=== PATIENT | male | born 1995 ===

== ENCOUNTER 2016-05-19 23:46 | Emergency (ER) | payer SELFPAY ==
[2016-05-20 00:03] VITALS: O2SAT 99
--- NOTE | 2016-05-20 01:10 | C.PDOC ---
History Of Present Illness 20 year old patient presents to the ED complaining of lower back pain for the past 2 weeks. The pain is worse after weight training. The pain is also radiating down the left lower for the past 3 days. Patient denies taking any medications, numbness, weakness, or urinary symptoms or bowel/ bladder incontinence. Patient reports the pain subsided while in the ED. Time Seen by Provider: 05/20/16 00:43 Chief Complaint (Nursing): Back Pain History Per: Patient History/Exam Limitations: no limitations Onset/Duration Of Symptoms: Worse Since (3 days), Other (2 weeks) Current Symptoms Are (Timing): Still Present Quality Of Discomfort: "Pain" Severity: Mild Pain Scale Rating Of: 3 Associated Symptoms: None Recent travel outside of the [place]: No Past Medical History Reviewed: Historical Data, Nursing Documentation, Vital Signs Vital Signs: Last Vital Signs Temp 97.7 F 05/20/16 01:18 Pulse 91 H 05/20/16 01:18 Resp 16 05/20/16 01:18 BP 106/61 05/20/16 01:18 Pulse Ox 99 05/20/16 05:06 Family History: States: Unknown Family Hx - Social History Hx Alcohol Use: No Hx Substance Use: No Review Of Systems Except As Marked, All Systems Reviewed And Found Negative. Genitourinary: Negative for: Dysuria, Frequency, Incontinence Musculoskeletal: Positive for: Back Pain (lower), Leg Pain (left) Neurological: Negative for: Weakness, Numbness Physical Exam - Physical Exam Appears: Non-toxic, No Acute Distress Skin: Warm, Dry Neck: Normal ROM, Supple Chest: Symmetrical Back: Normal Inspection, No CVA Tenderness, No Vertebral Tenderness, No Decreased ROM, No Paraspinal Tenderness Extremity: Normal ROM, No Pedal Edema, No Calf Tenderness, Capillary Refill (<2 seconds), No Deformity, Other (left leg: (+)<2 seconds capillary refill (-) deformity (-)swelling (+)good pulse (-)tenderness) Neurological/Psych: Oriented x3, Normal Speech, Normal Cognition Gait: Steady ED Course And Treatment O2 Sat by Pulse Oximetry: 99 (RA) Pulse Ox Interpretation: Normal Progress Note: Patient refused pain medications. Patient is resting comfortably , no fever, no bony tenderness, no numbness, no weakness, or abdominal pain. Patient is ambulatory in the emergency department with no signs of discomfort. Patient was advised to follow up with their physician in 1-2 days. Return if symptoms worsen. Disposition Counseled Patient/Family Regarding: Diagnosis, Need For Followup, Rx Given - Disposition Referrals: [facility] at [facility] [Outside] Disposition: HOME/ ROUTINE Disposition Time: 01:08 Condition: STABLE Additional Instructions: Take meds as directed Follow up in clinic Return to ER if worse Prescriptions: Cyclobenzaprine [Cyclobenzaprine HCl] 10 mg PO HS #10 tab Ibuprofen [Motrin] 600 mg PO Q6H #30 tab Instructions: Acute Low Back Pain (ED) Forms: Work Excuse - Clinical Impression Clinical Impression: Low back pain - PA / REAL ESTATE CLOSING COORDINATOR / Resident Statement MD/DO has reviewed & agrees with the documentation as recorded. - Scribe Statement The provider has reviewed the documentation as recorded by the Scribe Mary Gibson All medical record entries made by the Scribe were at my direction and personally dictated by me. I have reviewed the chart and agree that the record accurately reflects my personal performance of the history, physical exam, medical decision making, and the department course for this patient. I have also personally directed, reviewed, and agree with the discharge instructions and disposition.
[2016-05-20 01:19] VITALS: BP 106/61; PULSE 91; RESP 16; TEMP 97.7
== END 2016-05-20 01:20 | disposition home or self-care (01) ==
LOC: C.ER 23:46
DX: M54.5 Low back pain (principal)

== ENCOUNTER 2016-06-13 08:28 | Emergency (ER) | payer SELFPAY ==
[2016-06-13 08:31] VITALS: BP 132/78; PULSE 79; RESP 18; TEMP 98.1; O2SAT 97
[2016-06-13] MEDS ORDERED: Ciprofloxacin 0.3% OPTH SOLN OU STA (09:12)
--- NOTE | 2016-06-13 09:20 | C.PDOC ---
History Of Present Illness 20-year-old male, presents to the emergency department with complaints of 3 day duration of erythema o B/L eyes with purulent discharge, burning and puritis. Patient denies sick contacts Time Seen by Provider: 06/13/16 09:07 Chief Complaint (Nursing): Eye Problem History Per: Patient History/Exam Limitations: no limitations Past Medical History Reviewed: Historical Data, Nursing Documentation, Vital Signs Vital Signs: Last Vital Signs Temp 98.1 F 06/13/16 08:30 Pulse 79 06/13/16 08:30 Resp 18 06/13/16 08:30 BP 132/78 06/13/16 08:30 Pulse Ox 97 06/13/16 11:13 Family History: States: Unknown Family Hx - Social History Hx Alcohol Use: No Hx Substance Use: No Review Of Systems Except As Marked, All Systems Reviewed And Found Negative. Constitutional: Negative for: Fever, Chills Eyes: Positive for: Eyelid Inflammation, Redness. Negative for: Vision Change Respiratory: Negative for: Shortness of Breath Gastrointestinal: Negative for: Vomiting Skin: Negative for: Rash Neurological: Negative for: Weakness, Numbness, Headache, Dizziness Physical Exam - Physical Exam Appears: Non-toxic, No Acute Distress Skin: Warm, Dry, No Rash Head: Atraumatic, Normacephalic Eye(s): bilateral: PERRL, EOMI, Other (conjunctival erythema w/ yellow discharge ) Nose: Normal Oral Mucosa: Moist Lips: Normal Appearing Neck: Normal ROM Respiratory: No Accessory Muscle Use Extremity: Normal ROM ED Course And Treatment O2 Sat by Pulse Oximetry: 97 Disposition - Disposition Referrals: [facility] at [facility] [Outside] [facility] [Outside] Disposition: HOME/ ROUTINE Disposition Time: 09:13 Condition: STABLE Additional Instructions: Follow up with your PMD within 1-2 days. Return to ED if feel worse. Use Cipro eye drops as instructed:1 drop in both eyes every 2 h while awake for 2 days, followed by 1 drop every 4 h while awake for 5 more days. Prescriptions: Ciprofloxacin 0.3% [Ciloxan 0.3% Ophth SOLN] 1 drop OU Q2 #1 bottle Instructions: Conjunctivitis (ED) - Clinical Impression Clinical Impression: Conjunctivitis - Scribe Statement The provider has reviewed the documentation as recorded by the Angie Taveras All medical record entries made by the Scribe were at my direction and personally dictated by me. I have reviewed the chart and agree that the record accurately reflects my personal performance of the history, physical exam, medical decision making, and the department course for this patient. I have also personally directed, reviewed, and agree with the discharge instructions and disposition.
== END 2016-06-13 09:50 | disposition home or self-care (01) ==
LOC: C.ER 08:28
DX: H10.9 Unspecified conjunctivitis (principal)

== ENCOUNTER 2016-06-16 08:21 | Emergency (ER) | payer OTHER ==
[2016-06-16 08:25] VITALS: BP 138/76; PULSE 79; RESP 16; TEMP 98.6; O2SAT 99
[2016-06-16] MEDS ORDERED: Tobramycin/Dexamethasone (Tobradex) Opth Sol (2.5 ml) OU STA (08:41)
--- NOTE | 2016-06-16 08:44 | C.PDOC ---
History Of Present Illness 20 y/o male presents to the ED for evaluation of bilateral eye redness, irritation, and itching which began several days ago. Patient states he was seen in ED on 06/13 and given prescription for Ciprofloxacin eye drops. Patient has not had any improvement in his symptoms. He states he had clear discharge from his eyes when he woke up this morning. Patient denies fever/ chills, cough, runny nose, sore throat, eye trauma/injury, or sick contacts. Time Seen by Provider: 06/16/16 08:30 Chief Complaint (Nursing): Eye Problem History Per: Patient History/Exam Limitations: no limitations Onset/Duration Of Symptoms: Days Current Symptoms Are (Timing): Still Present Injury To Eye?: No Severity: Mild Quality: "Pain" Associated Symptoms: Discharge From Eye (clear ), Other (redness, irritation, itching ) Additional History Per: Patient Past Medical History Reviewed: Historical Data, Nursing Documentation, Vital Signs Vital Signs: Last Vital Signs Temp 98.6 F 06/16/16 08:25 Pulse 79 06/16/16 08:25 Resp 16 06/16/16 08:25 BP 138/76 06/16/16 08:25 Pulse Ox 99 06/16/16 11:29 - Medical History PMH: No Chronic Diseases Surgical History: No Surg Hx Family History: States: No Known Family Hx - Social History Hx Alcohol Use: No Hx Substance Use: No Review Of Systems Except As Marked, All Systems Reviewed And Found Negative. Constitutional: Negative for: Fever, Chills Eyes: Positive for: Redness, Other (+irritaion, itching and clear discharge bilaterally ) ENT: Negative for: Ear Pain Cardiovascular: Negative for: Chest Pain Respiratory: Negative for: Cough, Shortness of Breath Gastrointestinal: Negative for: Nausea, Vomiting, Abdominal Pain, Diarrhea Skin: Negative for: Rash Physical Exam - Physical Exam Appears: Well, Non-toxic, No Acute Distress Skin: Normal Color, Warm, Dry, No Rash Head: Normacephalic, No Swelling (periorbital ) Eye(s): bilateral: PERRL, EOMI, Other (scleral injection B/L without discharge, no eyelid swelling) Oral Mucosa: Moist Neck: Supple Cardiovascular: Rhythm Regular Respiratory: Normal Breath Sounds, No Rales, No Rhonchi, No Wheezing Extremity: Normal ROM Neurological/Psych: Oriented x3 Gait: Steady ED Course And Treatment O2 Sat by Pulse Oximetry: 99 (on RA) Pulse Ox Interpretation: Normal Progress Note: Patient given Tobradex eye drops, first dose in ED. He was instructed to follow up with ophthamology in 1-2 days, and understands he should return to ED if symptoms worsen. Disposition Counseled Patient/Family Regarding: Diagnosis, Need For Followup, Rx Given - Disposition Referrals: Fabian Park MD [Staff Provider] - [facility] [Outside] [facility] [Outside] Disposition: HOME/ ROUTINE Disposition Time: 08:50 Condition: STABLE Additional Instructions: FOLLOW UP WITH EYE DOCTOR IN 1-2 DAYS USE MEDICATION DIRECTED RETURN TO ER IF SYMPTOMS WORSEN Prescriptions: Dexamethasone/Tobramycin [Tobradex Opht Susp] 1 drop OU Q6 #1 bottle Instructions: Iritis (ED) Print Language: ITALIAN - POA Present On Arrival: None - Clinical Impression Clinical Impression: Iritis - Scribe Statement The provider has reviewed the documentation as recorded by the Scribe (Rosalba Gibson) Provider Attestation: All medical record entries made by the Scribe were at my direction and personally dictated by me. I have reviewed the chart and agree that the record accurately reflects my personal performance of the history, physical exam, medical decision making, and the department course for this patient. I have also personally directed, reviewed, and agree with the discharge instructions and disposition.
== END 2016-06-16 09:03 | disposition home or self-care (01) ==
LOC: C.ER 08:21
DX: H20.9 Unspecified iridocyclitis (principal)

== ENCOUNTER 2017-06-22 20:11 | Emergency (ER) | payer SELFPAY ==
[2017-06-22 20:46] VITALS: BP 122/67; PULSE 61; RESP 20; TEMP 98.1; O2SAT 99
--- NOTE | 2017-06-22 23:11 | C.PDOC ---
History Of Present Illness 21-year-old male, presents to the emergency department with complaints of bilateral itching and watery eyes x3 days. Patient denies any fever, chills, cough, sore throat, ear pain or any other associated symptoms. No other complaints at this time. Time Seen by Provider: 06/22/17 22:36 Chief Complaint (Nursing): Eye Problem History Per: Patient History/Exam Limitations: no limitations Past Medical History Reviewed: Historical Data, Nursing Documentation, Vital Signs Vital Signs: Last Vital Signs Temp 98.1 F 06/22/17 20:42 Pulse 61 06/22/17 20:42 Resp 20 06/22/17 20:42 BP 122/67 06/22/17 20:42 Pulse Ox 99 06/23/17 20:03 Family History: States: No Known Family Hx - Social History Hx Alcohol Use: No Hx Substance Use: No Review Of Systems Constitutional: Negative for: Fever Eyes: Positive for: Redness (itching and watery) ENT: Negative for: Throat Pain Respiratory: Negative for: Cough Physical Exam - Physical Exam Appears: Non-toxic, No Acute Distress Skin: Normal Color, Warm, Dry, No Rash Head: Normacephalic Eye(s): bilateral: PERRL, EOMI, Other (Bilateral injection, clear discharge, no tearing) Nose: Normal Oral Mucosa: Moist Lips: Normal Appearing Neck: Normal ROM, Supple Extremity: Normal ROM, No Deformity, No Swelling Neurological/Psych: Oriented x3, Normal Speech ED Course And Treatment O2 Sat by Pulse Oximetry: 99 (RA) Pulse Ox Interpretation: Normal Disposition Counseled Patient/Family Regarding: Diagnosis, Need For Followup, Rx Given - Disposition Referrals: Fabian Park MD [Staff Provider] - Disposition: HOME/ ROUTINE Disposition Time: 23:10 Condition: STABLE Additional Instructions: Take meds as directed Cold compress to eyes Return to ER if worse Prescriptions: Cetirizine HCl [Zyrtec] 10 mg PO DAILY #20 capsule Dexamethasone/Tobramycin [Tobradex 0.1%-0.3% 2.5 Ml] 1 drop OU Q6 #1 bottle Instructions: Conjunctivitis (Noninfectious Pinkeye) (DC) Forms: [employer] (T[place]ight) - Clinical Impression Clinical Impression: Allergic conjunctivitis - Scribe Statement The provider has reviewed the documentation as recorded by the Scribe (Delfino Kumar) All medical record entries made by the Scribe were at my direction and personally dictated by me. I have reviewed the chart and agree that the record accurately reflects my personal performance of the history, physical exam, medical decision making, and the department course for this patient. I have also personally directed, reviewed, and agree with the discharge instructions and disposition.
== END 2017-06-22 23:18 | disposition home or self-care (01) ==
LOC: C.ER 20:11
DX: H10.13 Acute atopic conjunctivitis, bilateral (principal)

== ENCOUNTER 2017-06-25 12:55 | Emergency (ER) | payer OTHER ==
[2017-06-25 13:07] VITALS: RESP 18; TEMP 98.2; O2SAT 99
--- NOTE | 2017-06-25 14:36 | RAD ---
PROCEDURE: Left Foot Radiographs. HISTORY: hit 4th and 5th digits yesterday COMPARISON: None. FINDINGS: BONES: No acute fracture. JOINTS: Unremarkable. SOFT TISSUES: Normal. OTHER FINDINGS: None. IMPRESSION: No demonstrated fracture or dislocation.
[2017-06-25 14:37] VITALS: BP 107/73; PULSE 74
--- NOTE | 2017-06-25 14:41 | C.PDOC ---
History Of Present Illness 21 y/o male presents to the ED for evaluation of left 4th and 5th toe injuries. Patient states he accidentally hit the left foot against a wall yesterday. Today he noticed bruising and pain to toes. No changes in sensation. Patient is still able to move all toes, with pain. Time Seen by Provider: 06/25/17 13:22 Chief Complaint (Nursing): Lower Extremity Problem/Injury History Per: Patient History/Exam Limitations: no limitations Onset/Duration Of Symptoms: Days Current Symptoms Are (Timing): Still Present Past Medical History Reviewed: Historical Data, Nursing Documentation, Vital Signs Vital Signs: Last Vital Signs Temp 98.2 F 06/25/17 14:36 Pulse 74 06/25/17 14:36 Resp 18 06/25/17 14:36 BP 107/73 06/25/17 14:36 Pulse Ox 99 06/25/17 14:42 Surgical History: No Surg Hx Family History: States: Unknown Family Hx - Social History Hx Alcohol Use: No Hx Substance Use: No - Immunization History Hx Tetanus Toxoid Vaccination: No Hx Influenza Vaccination: No Hx Pneumococcal Vaccination: No Review Of Systems Except As Marked, All Systems Reviewed And Found Negative. Musculoskeletal: Positive for: Other (left 4th and 5th toe pain) Neurological: Negative for: Weakness, Numbness Physical Exam - Physical Exam Appears: Non-toxic, No Acute Distress Skin: Warm, Dry Head: Atraumatic, Normacephalic Eye(s): bilateral: Normal Inspection Chest: Symmetrical Respiratory: No Accessory Muscle Use Extremity: Tenderness (to left 4th and 5th toes), Capillary Refill (< 2 sec), No Deformity, Swelling (to left 4th and 5th toes with ecchymosis) Pulses: Left Dorsalis Pedis: Normal, Right Dorsalis Pedis: Normal Neurological/Psych: Oriented x3, Normal Motor, Normal Sensation ED Course And Treatment O2 Sat by Pulse Oximetry: 99 (RA) Pulse Ox Interpretation: Normal - Other Rad XR L FOOT X-Ray: Read By Radiologist Interpretation: FINDINGS: BONES: No acute fracture. JOINTS: Unremarkable. SOFT TISSUES: Normal. OTHER FINDINGS: None. IMPRESSION: No demonstrated fracture or dislocation. Progress Note: X-ray of left foot obtained, and is negative. Patient given ortho shoe and is stable for d/c home. Advised to follow up with primary doctor or the clinic Disposition Counseled Patient/Family Regarding: Studies Performed, Diagnosis, Need For Followup, Rx Given - Disposition Disposition: HOME/ ROUTINE Disposition Time: 14:38 Condition: STABLE Additional Instructions: Follow up with your PMD/Clinic within 2-3 days. Return to ED if feel worse. Prescriptions: Ibuprofen [Motrin Tab] 400 mg PO Q8 #30 tab Instructions: Toe Injury (DC) Forms: [employer] (Z[place]an), Work Excuse - Clinical Impression Clinical Impression: Contusion, toes - PA / TERRAPIN FISHER / Resident Statement MD/DO has reviewed & agrees with the documentation as recorded. - Scribe Statement The provider has reviewed the documentation as recorded by the Scribe (Megan Esteban) All medical record entries made by the Scribe were at my direction and personally dictated by me. I have reviewed the chart and agree that the record accurately reflects my personal performance of the history, physical exam, medical decision making, and the department course for this patient. I have also personally directed, reviewed, and agree with the discharge instructions and disposition.
== END 2017-06-25 15:07 | disposition home or self-care (01) ==
LOC: C.ER 12:55
DX: S90.122A Contusion of left lesser toe(s) without damage to nail, initial encounter (principal); W22.01XA Walked into wall, initial encounter; Y92.9 Unspecified place or not applicable